=== PATIENT | male | born 1970 | race Native Hawaiian/Other Pacific Islander ===

== ENCOUNTER 2022-04-05 22:25 | Emergency (ER) | payer OTHER ==
[~2022-04-05] VITALS: Ht 182.9 cm; Wt 85.7 kg
[2022-04-05 22:25] VITALS: BP 112/77; TEMP 99.1
[2022-04-05 22:53] LABS: PLATELET COUNT 162 K/uL (142-355)
[2022-04-05 22:58] LABS: POTASSIUM 4.1 mmol/L (3.6-5.2)
[2022-04-06] MEDS ORDERED: SERT50TA PO (16:32)
[2022-04-06] MEDS ORDERED: SERT100T PO (16:33)
[2022-04-06] MEDS ORDERED: CARV3.12 PO (16:34)
[2022-04-06] MEDS ORDERED: MEMA10TA2 PO (16:36)
[2022-04-06] MEDS ORDERED: OMEPRAZOLE DR20 MG PO (16:37)
[2022-04-07] MEDS ORDERED: KP FOLIC ACID1 MG PO (09:47)
[2022-04-07] MEDS ORDERED: ASPIRIN 81 LOW81 MG PO (09:47)
[2022-04-07] MEDS ORDERED: LISI5TAB10 PO (09:48)
[2022-04-07] MEDS ORDERED: THIA100T8 PO (09:53)
[2022-04-07] MEDS ORDERED: MULTIVITAMI1 PO (09:54)
[2022-04-07] MEDS ORDERED: DIVA250T2 PO (10:04)
[2022-04-07] MEDS ORDERED: QUETIAPINE200 MG PO (10:06)
== END 2022-04-05 23:28 | disposition still patient (30) ==
LOC: ED 22:25
PROVIDERS: Emergency Medicine
DX: F25.8 Other schizoaffective disorders (principal); Z11.52 Encounter for screening for COVID-19; Z04.6 Encounter for general psychiatric examination, requested by authority
CPT/HCPCS: 80053; 81002; 85027; 87635; 99283; U0003

== ENCOUNTER 2022-04-26 17:30 | Emergency (ER) | payer OTHER ==
[~2022-04-26] VITALS: Ht 182.9 cm; Wt 89.8 kg
[~2022-04-26 17:30] MED LIST: ASPI81TA4 PO; ASPIRIN 81 LOW81 MG PO; CARV3.12 PO; DIVA250T2 PO; FOLI1TAB26 PO; KP FOLIC ACID1 MG PO; LISI5TAB10 PO; MEMA10TA2 PO; MULTIVITAMI1 PO; MULTTAB52 PO; OMEPRAZOLE DR20 MG PO; PANTOPRAZOLE 40MG TA PO; QUETIAPINE200 MG PO; SERT100T PO; SERT50TA PO; THIA100T8 PO
[2022-04-26 18:25] LABS: PLATELET COUNT 175 K/uL (142-355)
[2022-04-26 18:31] LABS: POTASSIUM 4.2 mmol/L (3.6-5.2)
[2022-04-26 19:25] VITALS: BP 141/84; TEMP 98.5
[2022-04-26] MEDS ORDERED: MULTIVITAMI1 PO (20:45)
[2022-04-26] MEDS ORDERED: DIVALPROEX500 M1 PO (20:48)
[2022-04-26] MEDS ORDERED: DIVALPROEX250 M1 PO (20:49)
[2022-04-26] MEDS ORDERED: OMEPRAZOLE DR20 MG PO (20:50)
== END 2022-04-26 19:30 | disposition other institution (70) ==
LOC: ED 17:30
PROVIDERS: Family Medicine
DX: F03.911 Unspecified dementia, unspecified severity, with agitation (principal); Z11.52 Encounter for screening for COVID-19; Z04.6 Encounter for general psychiatric examination, requested by authority
CPT/HCPCS: 36415; 80053; 81002; 85027; 87635; 93005; 99284; U0003